=== PATIENT | female | born 1985 | race Caucasian/White ===

== ENCOUNTER 2018-10-25 17:29 | Emergency (ER) | payer BC ==
[~2018-10-25] VITALS: Ht 177.8 cm; Wt 63.5 kg
[~2018-10-25 17:29] MED LIST: MOTRIN800 MG PO
[2018-10-25 19:36] LABS: BASO # 0.1 10*3/uL (0.0-0.1); EOS # 0.2 10*3/uL (0.0-0.4); EOS % 1.5 % (1.0-4.0); HEMATOCRIT 42.6 % (37.0-47.0); HEMOGLOBIN 14.5 g/dl (12.0-16.0); LYMPH # 3.5 10*3/uL (1.3-4.4); LYMPH % 31.7 % (27.0-41.0); MEAN PLATELET VOLUME 9.8 fl (9.6-12.3); MONO # 1.1 10*3/uL (0.1-1.0); MONO % 9.9 % (3.0-9.0); NEUT # 6.2 10*3/uL (2.3-7.9); NEUT % 55.5 % (47.0-73.0); PLATELET COUNT AUTOMATED 260 10*3/uL (130-400); RED BLOOD COUNT 4.53 10*6/uL (4.10-5.10); WHITE BLOOD COUNT 11.1 10*3/uL (4.8-10.8)
[2018-10-25 20:00] LABS: ALBUMIN 4.1 gm/dl (3.1-4.5); ALKALINE PHOSPHATASE 72 U/L (45-117); BUN 7 mg/dl (7-24); CHLORIDE 107 mmol/L (98-107); CREATININE 0.65 mg/dL (0.55-1.02); LIPASE 101 U/L (73-393); POTASSIUM 3.4 mmol/L (3.5-5.1); SGOT/AST 9 IU/L (3-35); SGPT/ALT 18 U/L (12-78); SODIUM 140 mmol/L (136-145); TOTAL PROTEIN 7.4 gm/dL (6.4-8.2)
[2018-10-25 20:04] LABS: BILIRUBIN NEGATIVE (NEGATIVE); BLOOD NEGATIVE (NEGATIVE); CLARITY CLEAR (CLEAR); COLOR YELLOW (YELLOW); GLUCOSE NEGATIVE (NEGATIVE); KETONE NEGATIVE (NEGATIVE); LEUKO ESTERASE NEGATIVE (NEGATIVE); NITRITE NEGATIVE (NEGATIVE); PH 6.5 (5.0-9.0); SPECIFIC GRAVITY <= 1.005 (1.005-1.030); UROBILINOGEN 0.2 E.U./dl (0.2-1.0)
[2018-10-25 20:17] LABS: RBC 0-2 rbc/hpf (0-2); WBC 0-2 wbc/hpf (0-5)
== END 2018-10-25 21:35 | disposition home or self-care (01) ==
LOC: ED 17:29
PROVIDERS: Physician Assistant
DX: R10.11 Right upper quadrant pain (principal); R11.0 Nausea

== ENCOUNTER 2019-08-05 09:14 | Emergency (ER) | payer BC ==
[~2019-08-05] VITALS: Ht 177.8 cm; Wt 62.1 kg
== END 2019-08-05 12:18 | disposition home or self-care (01) ==
LOC: ED 09:14
DX: G43.909 Migraine, unspecified, not intractable, without status migrainosus (principal)

== ENCOUNTER → 2020-02-07 | Outpatient (CLI) | payer BC | END | disposition home or self-care (01) | LOC: RAD 18:16 | PROVIDERS: ATTEND Nurse Practitioner Primary Care | DX: R05 Cough (principal); R06.02 Shortness of breath ==

== ENCOUNTER 2020-07-18 19:23 | Emergency (ER) | payer BC ==
[~2020-07-18] VITALS: Ht 175.2 cm; Wt 63.5 kg
[2020-07-18] MEDS ORDERED: CEPHALEXIN500 M1 PO (20:13)
[2020-07-18] MEDS ORDERED: NAPROXEN250 MG PO (20:13)
== END 2020-07-18 20:15 | disposition home or self-care (01) ==
LOC: ED 19:23
DX: S60.212A Contusion of left wrist, initial encounter (principal); S60.512A Abrasion of left hand, initial encounter; S80.811A Abrasion, right lower leg, initial encounter; V89.2XXA Person injured in unspecified motor-vehicle accident, traffic, initial encounter; Y93.89 Activity, other specified; Y92.89 Other specified places as the place of occurrence of the external cause; Y99.8 Other external cause status

== ENCOUNTER 2021-10-07 18:35 | Emergency (ER) | payer BC ==
[~2021-10-07] VITALS: Wt 72.6 kg
[~2021-10-07 18:35] MED LIST changes: +CEPHALEXIN500 M1 PO; +NAPROXEN250 MG PO
== END 2021-10-07 21:39 | disposition home or self-care (01) ==
LOC: ED 18:35
DX: G43.909 Migraine, unspecified, not intractable, without status migrainosus (principal); R11.2 Nausea with vomiting, unspecified

== ENCOUNTER → 2021-11-15 | Outpatient (CLI) | payer BC | END | disposition home or self-care (01) | LOC: CT 09:00 | PROVIDERS: ATTEND Nurse Practitioner Primary Care | DX: G43.011 Migraine without aura, intractable, with status migrainosus (principal); H55.00 Unspecified nystagmus ==

== ENCOUNTER → 2021-12-21 | Outpatient (CLI) | payer BC | END | disposition home or self-care (01) | LOC: MRI 08:00 | PROVIDERS: ATTEND Nurse Practitioner Primary Care | DX: G43.011 Migraine without aura, intractable, with status migrainosus (principal); H55.00 Unspecified nystagmus; R42 Dizziness and giddiness; H53.19 Other subjective visual disturbances ==

== ENCOUNTER 2022-10-13 00:58 | Emergency (ER) | payer BC ==
[~2022-10-13] VITALS: Ht 175.2 cm; Wt 76.2 kg
[2022-10-13] MEDS ORDERED: PROPRANOLOL ER80 MG PO (01:16)
[2022-10-13] MEDS ORDERED: ATOMOXETINE HCL40 MG PO (01:16)
[2022-10-13] MEDS ORDERED: MELOXICAM15 MG PO (02:49)
== END 2022-10-13 03:24 | disposition home or self-care (01) ==
LOC: ED 00:58
DX: S93.601A Unspecified sprain of right foot, initial encounter (principal); Z98.890 Other specified postprocedural states; X58.XXXA Exposure to other specified factors, initial encounter; Y93.89 Activity, other specified; Y92.89 Other specified places as the place of occurrence of the external cause; Y99.8 Other external cause status

== ENCOUNTER 2023-08-17 20:01 | Emergency (ER) | payer BC ==
[~2023-08-17] VITALS: Ht 175.2 cm; Wt 72.6 kg
[~2023-08-17 20:01] MED LIST changes: +ATOMOXETINE HCL40 MG PO; +MELOXICAM15 MG PO; +PROPRANOLOL ER80 MG PO
[2023-08-17] MEDS ORDERED: Ondansetron Hydrochloride 4 MG/2 ML VIAL IV ONE (20:40)
[2023-08-17] MEDS ORDERED: Ketorolac Tromethamine 30 MG/ML VIAL IV ONE (20:40)
[2023-08-17] MEDS ORDERED: SODIUM CHLORIDE 0.9% 1,000 ML IV ONE (20:40)
[2023-08-17] MEDS ORDERED: diphenhydrAMINE hydrochloride 50 MG/ML VIAL IV ONE (20:40)
== END 2023-08-17 22:16 | disposition home or self-care (01) ==
LOC: ED 20:01
DX: G43.909 Migraine, unspecified, not intractable, without status migrainosus (principal); Z98.890 Other specified postprocedural states

== ENCOUNTER 2023-09-16 00:45 | Emergency (ER) | payer BC ==
[~2023-09-16] VITALS: Ht 175.2 cm; Wt 72.6 kg
== END 2023-09-16 04:46 | disposition left against medical advice (07) ==
LOC: ED 00:45
DX: R51.9 Headache, unspecified (principal); R11.10 Vomiting, unspecified; R42 Dizziness and giddiness; Z53.21 Procedure and treatment not carried out due to patient leaving prior to being seen by health care provider

== ENCOUNTER 2024-01-11 14:27 | Emergency (ER) | payer BC ==
[~2024-01-11] VITALS: Ht 177.8 cm; Wt 72.6 kg
[2024-01-11] MEDS ORDERED: Ketorolac Tromethamine 15 MG/ML VIAL IV ONE (15:15)
[2024-01-11] MEDS ORDERED: diphenhydrAMINE hydrochloride 50 MG/ML VIAL IV ONE (15:15)
[2024-01-11] MEDS ORDERED: SODIUM CHLORIDE 0.9% 1,000 ML IV ONE (15:15)
[2024-01-11] MEDS ORDERED: Prochlorperazine Edisylate 10 MG/2 ML VIAL IV ONE (15:15)
[2024-01-11 15:31] LABS: BASO # 0.1 10*3/uL (0.0-0.1); BASO % 0.7 % (0.0-1.0); EOS # 0.1 10*3/uL (0.0-0.4); EOS % 0.7 % (1.0-4.0); HEMATOCRIT 43.2 % (37.0-47.0); MEAN CELL VOLUME 94.7 fl (81.0-99.0); MEAN CORPUSCULAR HGB 31.1 pg (27.0-31.0); MEAN CORPUSCULAR HGB CONC 32.9 g/dl (33.0-37.0); MEAN PLATELET VOLUME 9.3 fl (9.6-12.3); MONO # 0.8 10*3/uL (0.1-1.0); MONO % 6.2 % (3.0-9.0); NEUT # 9.6 10*3/uL (2.3-7.9); PLATELET COUNT AUTOMATED 281 10*3/uL (130-400); RED BLOOD COUNT 4.56 10*6/uL (4.10-5.10); RED CELL DISTRI WIDTH 11.7 % (0-14.5); WHITE BLOOD COUNT 12.2 10*3/uL (4.8-10.8)
[2024-01-11 15:45] LABS: BUN 6 mg/dl (9-23); CHLORIDE 106 mmol/L (98-107)
[2024-01-11] MEDS ORDERED: IBU800 M2 PO (16:07)
[2024-01-11] MEDS ORDERED: COMPAZINE10 M1 PO (16:07)
== END 2024-01-11 16:01 | disposition home or self-care (01) ==
LOC: ED 14:27
PROVIDERS: Emergency Medicine
DX: G43.909 Migraine, unspecified, not intractable, without status migrainosus (principal); Z98.890 Other specified postprocedural states

== ENCOUNTER 2024-03-08 10:57 | Observation (INO) | payer BC ==
[~2024-03-08] VITALS: Ht 177.8 cm; Wt 76.2 kg
[~2024-03-08 10:57] MED LIST changes: +COMPAZINE10 M1 PO; +IBU800 M2 PO
[2024-03-08 10:59] VITALS: BP 122/83
[2024-03-08] MEDS ORDERED: SODIUM CHLORIDE 0.9% 1,000 ML IV ONE (11:10)
[2024-03-08] MEDS ORDERED: PAROXETINE HCL10 MG PO (11:12)
[2024-03-08] MEDS ORDERED: SODIUM CHLORIDE 0.9% 1,000 ML IV SCH (11:35)
[2024-03-08 11:38] LABS: BASO # 0.1 10*3/uL (0.0-0.1); BASO % 0.7 % (0.0-1.0); EOS # 0.3 10*3/uL (0.0-0.4); EOS % 2.4 % (1.0-4.0); HEMATOCRIT 44.1 % (37.0-47.0); MEAN CELL VOLUME 92.6 fl (81.0-99.0); MEAN CORPUSCULAR HGB 30.9 pg (27.0-31.0); MEAN CORPUSCULAR HGB CONC 33.3 g/dl (33.0-37.0); MEAN PLATELET VOLUME 9.5 fl (9.6-12.3); MONO # 1.2 10*3/uL (0.1-1.0); MONO % 11.2 % (3.0-9.0); NEUT # 7.2 10*3/uL (2.3-7.9); PLATELET COUNT AUTOMATED 275 10*3/uL (130-400); RED BLOOD COUNT 4.76 10*6/uL (4.10-5.10); RED CELL DISTRI WIDTH 11.7 % (0-14.5); WHITE BLOOD COUNT 10.9 10*3/uL (4.8-10.8)
[2024-03-08 11:40] VITALS: BP 128/57
[2024-03-08 11:58] LABS: BUN < 5 mg/dl (9-23); CHLORIDE 105 mmol/L (98-107); POTASSIUM 3.4 mmol/L (3.4-5.1)
[2024-03-08 12:00] VITALS: BP 125/73
[2024-03-08 14:08] LABS: BILIRUBIN Negative (Negative); BLOOD Negative (Negative); CLARITY Clear (Clear); COLOR Yellow (Yellow); GLUCOSE Negative (Negative); KETONE 1+ (Negative); LEUKO ESTERASE Negative (Negative); NITRITE Negative (Negative); SPECIFIC GRAVITY 1.015 (1.001-1.030)
[2024-03-08 14:18] LABS: BACTERIA 1+; MUCOUS 1+; RBC 0-2 rbc/hpf (0-2)
[2024-03-08] MEDS ORDERED: ACETAMINOPHEN 325 MG TAB PO PRN (15:20)
[2024-03-08] MEDS ORDERED: Magnesium Hydroxide 30 ML UDC PO PRN (15:20)
[2024-03-08] MEDS ORDERED: BISACODYL 5 MG TAB PO PRN (15:20)
[2024-03-08] MEDS ORDERED: AZITHROMYCIN 250 ML IV SCH (16:00)
[2024-03-08] MEDS ORDERED: Propranolol Hydrochloride 80 MG CAP (LA) PO SCH (16:05)
[2024-03-08] MEDS ORDERED: Ceftriaxone Sodium 10 ML IV SCH (17:00)
[2024-03-08] MEDS ORDERED: Enoxaparin Sodium 80 MG/0.8 ML SYR SC SCH (18:00)
[2024-03-08] MEDS ORDERED: Ondansetron Hydrochloride 4 MG TAB PO ONE (19:15)
[2024-03-08] MEDS ORDERED: Ondansetron Hydrochloride 4 MG/2 ML VIAL IV ONE (19:20)
[2024-03-08 20:24] VITALS: BP 122/84
[2024-03-08 20:46] VITALS: BP 123/72
[2024-03-09 01:19] VITALS: BP 128/78
[2024-03-09] MEDS ORDERED: Ketorolac Tromethamine 15 MG/ML VIAL IV ONE (04:25)
[2024-03-09] MEDS ORDERED: diphenhydrAMINE hydrochloride 50 MG/ML VIAL IV ONE (04:25)
[2024-03-09] MEDS ORDERED: SODIUM CHLORIDE 0.9% 500 ML IV ONE (04:25)
[2024-03-09 04:27] VITALS: BP 122/83
[2024-03-09] MEDS ORDERED: MAGNESIUM SULFATE 50 ML IV ONE (04:30)
[2024-03-09] MEDS ORDERED: Ondansetron Hydrochloride 4 MG/2 ML VIAL IV ONE (04:30)
[2024-03-09 05:17] LABS: ALKALINE PHOSPHATASE 93 U/L (46-116); CHLORIDE 107 mmol/L (98-107); CHOLESTEROL 137 mg/dL (<200); FREE T4 1.25 ng/dl (0.89-1.76); LDL CHOLESTEROL 80 mg/dL (9-159); POTASSIUM 3.8 mmol/L (3.4-5.1); SGPT/ALT 32 U/L (5-49); TOTAL PROTEIN 6.5 gm/dL (6.0-8.0); TRIGLYCERIDES 85 mg/dl (<150)
[2024-03-09 05:18] LABS: BUN < 5 mg/dl (9-23)
[2024-03-09 06:16] LABS: BASO # 0.1 10*3/uL (0.0-0.1); EOS # 0.3 10*3/uL (0.0-0.4); EOS % 2.9 % (1.0-4.0); MEAN CORPUSCULAR HGB 30.6 pg (27.0-31.0); MEAN CORPUSCULAR HGB CONC 32.3 g/dl (33.0-37.0); MONO # 1.3 10*3/uL (0.1-1.0); MONO % 11.4 % (3.0-9.0); NEUT # 7.2 10*3/uL (2.3-7.9); NEUT % 62.3 % (47.0-73.0); PLATELET COUNT AUTOMATED 283 10*3/uL (130-400); RED BLOOD COUNT 4.21 10*6/uL (4.10-5.10); RED CELL DISTRI WIDTH 11.9 % (0-14.5); WHITE BLOOD COUNT 11.6 10*3/uL (4.8-10.8)
[2024-03-09 06:29] VITALS: BP 128/74
[2024-03-09 06:32] LABS: ACT PARTIAL THROMBO TIME 28.7 SECONDS (20.0-32.1)
[2024-03-09 07:35] LABS: VITAMIN D, 25-HYDROXY 35.4 ng/mL (30-100)
[2024-03-09 08:00] VITALS: BP 109/68
[2024-03-09] MEDS ORDERED: Phosphorus/Potassium 1.45 GM PACKET PO SCH (08:00)
[2024-03-09] MEDS ORDERED: Paroxetine Hydrochloride 10 MG TAB PO SCH (10:00)
[2024-03-09] MEDS ORDERED: Enoxaparin Sodium 40 MG/0.4 ML SYR SC SCH (10:00)
[2024-03-09] MEDS ORDERED: ATOMOXETINE 40 MG PO SCH (10:00)
[2024-03-09] MEDS ORDERED: FLUTICASONE PROPIONATE Nasal 16 Gm spray NAS SCH (11:05)
[2024-03-09] MEDS ORDERED: AVPAK AZITHROM250 MG PO (14:50)
[2024-03-09] MEDS ORDERED: FLONASE ALLERG9.9 ML NAS (14:50)
== END 2024-03-09 16:10 | disposition home or self-care (01) ==
LOC: ED 10:57 → EDHOLD 14:19 → 4E 03-09 08:45 → EDHOLD 03-09 08:45 → 4E 03-09 08:45 → EDHOLD 03-09 16:10
PROVIDERS: Nurse Practitioner Family; ADMIT Family Medicine; ATTEND Family Medicine
DX: F90.9 Attention-deficit hyperactivity disorder, unspecified type (principal); G43.909 Migraine, unspecified, not intractable, without status migrainosus; Z20.822 Contact with and (suspected) exposure to COVID-19; R00.2 Palpitations; J98.4 Other disorders of lung; I24.89 Other forms of acute ischemic heart disease; B34.9 Viral infection, unspecified; I21.A1 Myocardial infarction type 2; R82.4 Acetonuria; R73.9 Hyperglycemia, unspecified; Z79.899 Other long term (current) drug therapy